=== PATIENT | female | born 1960 | race African-American/Black ===

== ENCOUNTER 2019-06-08 17:09 | Inpatient (IN) ==
[2019-06-08] MEDS ORDERED: 0.9 % Sodium Chloride 1,000 ML IVC ONE ×2 (17:40→19:09)
[2019-06-08] MEDS ORDERED: Piperacillin/Tazobactam 3.375 GM in 0.9 % Sodium Chloride Mini Bag 100 ML IVPB ONE (17:40)
[2019-06-08] MEDS ORDERED: Isovue-370 500 ML BOTTLE IVP ONE (17:41)
[2019-06-08] MEDS ORDERED: *HR* FentaNYL (PF) 100 MCG/2 ML VIAL IVP ONE (17:58)
[2019-06-08] MEDS ORDERED: Ondansetron 4 MG/2 ML VIAL IVP ONE (17:58)
[2019-06-08] MEDS ORDERED: Morphine Sulfate 2 MG/ML SYRINGE IVP ONE (17:58)
[2019-06-08] MEDS ORDERED: Vancomycin 0 MG in 0.9 % Sodium Chloride 250 ML IVPB SCH (18:00)
[2019-06-08 18:21] LABS: Basophils % 0.5 %; Eosinophils # 0.2 K/mcL (0.0-0.6); Eosinophils % 3.5 %; Hematocrit 37.6 % (35.3-44.9); Hemoglobin 12.7 g/dL (11.5-15.4); Immature Granulocytes % 0.8 % (0-4); Mean Corpuscular HGB Conc 33.8 g/dL (31.6-35.5); Mean Corpuscular Hemoglobin 28.5 pg (28.0-33.3); Mean Corpuscular Volume 84.5 fL (83.0-100.0); Mean Platelet Volume 10.4 fL (9.4-12.4); Monocytes # 0.6 K/mcL (0.0-1.3); Neutrophils # 3.3 K/mcL (1.6-8.9); Platelet Count 352 K/mcL (140-400); Red Blood Count 4.45 M/mcL (3.82-4.97); Segmented Neutrophils % 49.2 %; White Blood Count 6.6 K/mcL (4.3-11.1)
[2019-06-08 18:23] LABS: INR 1.1
[2019-06-08 18:26] LABS: Activated Partial Thrombo Time 31.1 Seconds (26.0-36.0)
[2019-06-08 18:31] LABS: Lymphocytes # 2.4 K/mcL (0.6-4.6)
[2019-06-08 18:40] LABS: BUN/Creatinine Ratio 15 (6-26); Blood Urea Nitrogen 14 mg/dL (6-20); Calcium 10.6 mg/dL (8.6-10.3); Carbon Dioxide 27 mEq/L (23-29); Chloride 105 mEq/L (98-107); Glucose 103 mg/dL (70-105); Osmolality,Calculated 295 (280-300); Potassium 3.9 mEq/L (3.5-5.1); Sodium 142 mEq/L (136-145); eGFR For African Americans > 60 (> 60); eGFR For Non-African Americans > 60 (> 60)
[2019-06-08 18:45] LABS: Platelet Estimate Normal (Normal); Reactive Lymphocytes Present (Not Present)
[2019-06-08 18:46] LABS: Large Platelets Present (Not Present)
[2019-06-08] MEDS ORDERED: *HR* HYDROmorphone (PF) 1 MG/ML SYRINGE IVP ONE (19:09)
[2019-06-08] MEDS ORDERED: Ketorolac 15 MG/ML VIAL IVP ONE (19:51)
[2019-06-09] MEDS ORDERED: Naloxone 0.4 MG/ML INJ IVP PRN ×3 (01:40→17:51)
[2019-06-09 04:18] LABS: Bilirubin,Urine Negative (Negative); Blood,Urine Negative (Negative); Clarity,Urine Clear (Clear); Color,Urine Yellow (Yellow); Glucose,Urine (UA) Normal (Normal); Ketones,Urine Negative (Negative); Leukocyte Esterase,Urine Negative (Negative); Nitrite,Urine Negative (Negative); Protein,Urine Negative (Neg-Trace); Specific Gravity,Urine 1.028 (1.010-1.025); Urobilinogen,Urine Normal (Normal)
[2019-06-09 04:30] LABS: Basophils % 0.7 %; Eosinophils # 0.2 K/mcL (0.0-0.6); Eosinophils % 3.7 %; Hematocrit 35.4 % (35.3-44.9); Hemoglobin 11.5 g/dL (11.5-15.4); Immature Granulocytes % 0.5 % (0-4); Lymphocytes # 2.2 K/mcL (0.6-4.6); Lymphocytes % 39.2 %; Mean Corpuscular HGB Conc 32.5 g/dL (31.6-35.5); Mean Corpuscular Volume 89.4 fL (83.0-100.0); Mean Platelet Volume 10.3 fL (9.4-12.4); Monocytes # 0.5 K/mcL (0.0-1.3); Monocytes % 9.1 %; Neutrophils # 2.7 K/mcL (1.6-8.9); Platelet Count 301 K/mcL (140-400); Red Blood Count 3.96 M/mcL (3.82-4.97); Red Cell Distribution Width 14.1 % (11.5-14.5); Segmented Neutrophils % 46.8 %; White Blood Count 5.7 K/mcL (4.3-11.1)
[2019-06-09 04:34] LABS: INR 1.1; Prothrombin Time 12.6 Seconds (9.4-12.1)
[2019-06-09 05:07] LABS: Alanine Aminotransferase 15 Units/L (7-52); Albumin 3.2 g/dL (3.5-5.7); Albumin/Globulin Ratio 1.1 (1.1-2.2); Alkaline Phosphatase 88 Units/L (34-104); Aspartate Amino Transferase 26 Units/L (13-39); BUN/Creatinine Ratio 15 (6-26); Bilirubin,Total 0.2 mg/dL (0.3-1.0); Blood Urea Nitrogen 12 mg/dL (6-20); Calcium 9.2 mg/dL (8.6-10.3); Carbon Dioxide 16 mEq/L (23-29); Chloride 112 mEq/L (98-107); Cholesterol 175 mg/dL (< 200); Globulin 2.9 g/dL (2.4-3.5); Glucose 138 mg/dL (70-105); HDL Cholesterol 35 mg/dL (40-59); LDL Cholesterol,Calculated 117 mg/dL (0-99); Magnesium 1.9 mg/dL (1.6-2.6); Osmolality,Calculated 286 (280-300); Phosphorous 2.6 mg/dL (2.7-4.5); Potassium 4.1 mEq/L (3.5-5.1); Sodium 137 mEq/L (136-145); Total Protein 6.1 g/dL (6.4-8.9); Triglycerides 117 mg/dL (< 150); eGFR For African Americans > 60 (> 60); eGFR For Non-African Americans > 60 (> 60)
[2019-06-09] MEDS ORDERED: Cefepime HCl 1,000 MG in Water for inj. (sterile) 10 ML IVP SCH (07:08)
[2019-06-09] MEDS ORDERED: Acetaminophen 325 MG TABLET PO PRN (09:22)
[2019-06-09] MEDS: Piperacillin/Tazobactam 3.375 GM in 0.9 % Sodium Chloride Mini Bag 100 ML IVPB SCH ×2 (09:27→16:39)
[2019-06-09] MEDS ORDERED: Fluticasone Propionate Nasal 50 MCG/SPRAY BOTTLE NS PRN ×2 (13:32→17:51)
[2019-06-09] MEDS ORDERED: *HR* FentaNYL (PF) 100 MCG/2 ML VIAL ONE (15:56)
[2019-06-09] MEDS ORDERED: *HR* Midazolam HCl 2 MG/2 ML VIAL ONE (15:56)
[2019-06-09] MEDS ORDERED: Dexamethasone 4 MG/ML VIAL ONE (15:56)
[2019-06-09] MEDS ORDERED: *HR* Propofol 200 MG/20 ML VIAL IVP ONE (15:56)
[2019-06-09] MEDS ORDERED: Lidocaine -MPF 2% 2 ML VIAL ONE (15:56)
[2019-06-09] MEDS ORDERED: Ondansetron 4 MG/2 ML VIAL ONE (15:56)
[2019-06-09] MEDS: *HR* HYDROmorphone (PF) 1 MG/ML SYRINGE IVP PRN ×2 (16:44→16:49)
[2019-06-09] MEDS ORDERED: *HR* HYDROmorphone (PF) 1 MG/ML SYRINGE IVP ONE (17:51)
[2019-06-09] MEDS ORDERED: *HR* HYDROmorphone (PF) 1 MG/ML SYRINGE IVP PRN (17:51)
[2019-06-09] MEDS ORDERED: *HR* Heparin 5,000 UNIT/ML VIAL SQ SCH (18:00)
[2019-06-09] MEDS: *HR* Heparin 5,000 UNIT/ML VIAL SQ SCH (19:34)
[2019-06-09] MEDS: Acetaminophen 325 MG TABLET PO PRN (20:47)
[2019-06-10] MEDS: Piperacillin/Tazobactam 3.375 GM in 0.9 % Sodium Chloride Mini Bag 100 ML IVPB SCH ×3 (00:39→18:18)
[2019-06-10 05:11] LABS: Hemoglobin 12.3 g/dL (11.5-15.4); Mean Corpuscular HGB Conc 34.2 g/dL (31.6-35.5); Mean Corpuscular Hemoglobin 29.3 pg (28.0-33.3); Mean Corpuscular Volume 85.7 fL (83.0-100.0); Mean Platelet Volume 9.9 fL (9.4-12.4); Platelet Count 332 K/mcL (140-400); Red Cell Distribution Width 13.7 % (11.5-14.5); White Blood Count 7.3 K/mcL (4.3-11.1)
[2019-06-10 05:29] LABS: BUN/Creatinine Ratio 13 (6-26); Blood Urea Nitrogen 12 mg/dL (6-20); Calcium 9.7 mg/dL (8.6-10.3); Carbon Dioxide 21 mEq/L (23-29); Chloride 106 mEq/L (98-107); Glucose 149 mg/dL (70-105); Osmolality,Calculated 297 (280-300); Potassium 4.4 mEq/L (3.5-5.1); Sodium 142 mEq/L (136-145); eGFR For African Americans > 60 (> 60); eGFR For Non-African Americans > 60 (> 60)
[2019-06-10] MEDS: *HR* Heparin 5,000 UNIT/ML VIAL SQ SCH ×2 (06:39→18:19)
[2019-06-10] MEDS ORDERED: amLODIPine 5 MG TABLET PO SCH (09:00)
[2019-06-10] MEDS: amLODIPine 5 MG TABLET PO SCH (09:52)
[2019-06-10] MEDS: Acetaminophen 325 MG TABLET PO PRN (21:49)
[2019-06-11] MEDS: Piperacillin/Tazobactam 3.375 GM in 0.9 % Sodium Chloride Mini Bag 100 ML IVPB SCH ×2 (01:23→08:44)
[2019-06-11] MEDS: *HR* Heparin 5,000 UNIT/ML VIAL SQ SCH (04:53)
[2019-06-11] MEDS: amLODIPine 5 MG TABLET PO SCH (08:45)
[2019-06-11 10:18] VITALS: BP 133/75
[2019-06-11] MEDS ORDERED: Aminoglycoside Consult 1 EACH MC ONE (18:24)
== END 2019-06-11 18:25 | disposition home health service (06) | DRG 571 ==
LOC: 3ANU 17:09 → EMEROOARM 17:09 → SUATTDRO 20:55 → 3ANU 21:55
PROVIDERS: ADMIT Internal Medicine; ATTEND Internal Medicine

== ENCOUNTER 2021-11-30 11:00 | Observation (INO) ==
[2021-11-30 12:00] LABS: VBG HCO3 24 mEq/L (21-27); VBG PCO2 48 mmHg (41-51); VBG PH 7.31 pH Units (7.32-7.42); VBG PO2 45 mmHg (25-50)
[2021-11-30 12:00] LABS: Basophils % 0.5 %; Hematocrit 48.4 % (35.3-44.9); Hemoglobin 15.3 g/dL (11.5-15.4); Immature Granulocytes % 0.4 % (0-4); Lymphocytes # 1.6 K/mcL (0.6-4.6); Lymphocytes % 18.6 %; Mean Corpuscular HGB Conc 31.6 g/dL (31.6-35.5); Mean Corpuscular Hemoglobin 28.3 pg (28.0-33.3); Mean Corpuscular Volume 89.5 fL (83.0-100.0); Mean Platelet Volume 12.4 fL (9.4-12.4); Monocytes # 0.4 K/mcL (0.0-1.3); Monocytes % 4.8 %; Neutrophils # 6.3 K/mcL (1.6-8.9); Platelet Count 295 K/mcL (140-400); Red Blood Count 5.41 M/mcL (3.82-4.97); Red Cell Distribution Width 14.9 % (11.5-14.5); Segmented Neutrophils % 75.7 %; White Blood Count 8.3 K/mcL (4.3-11.1)
[2021-11-30] MEDS: 0.9 % Sodium Chloride 1,000 ML IVC SCH ×2 (12:00→13:35)
[2021-11-30 12:27] LABS: Albumin 4.6 g/dL (3.5-5.7); Albumin/Globulin Ratio 1.2 (1.1-2.2); Calcium 12.4 mg/dL (8.6-10.3); Magnesium 2.8 mg/dL (1.6-2.6); Potassium 5.4 mEq/L (3.5-5.1); Total Protein 8.6 g/dL (6.4-8.9)
[2021-11-30 12:41] LABS: Bilirubin,Urine Negative (Negative); Blood,Urine Negative (Negative); Clarity,Urine Clear (Clear); Color,Urine Colorless (Yellow); Glucose,Urine (UA) >=1000 mg/dL (Normal); Ketones,Urine 20 mg/dL (Negative); Leukocyte Esterase,Urine Negative (Negative); Nitrite,Urine Negative (Negative); Protein,Urine Negative (Neg-Trace); RBC,Urine 0-3 per hpf (0-3); Specific Gravity,Urine 1.028 (1.010-1.025); Squamous Epithelial Cell,Urine Few per hpf (None-Few); Urobilinogen,Urine Normal (Normal); WBC,Urine 0-3 per hpf (0-3)
[2021-11-30] MEDS ORDERED: *HR* Metformin 500 MG TABLET PO ONE (12:58)
[2021-11-30] MEDS ORDERED: Naloxone 0.4 MG/ML INJ IVP PRN (13:06)
[2021-11-30] MEDS ORDERED: Insulin Regular, Human 100 UNIT/ML IV PRN ×2 (13:07→17:34)
[2021-11-30] MEDS ORDERED: D5% in 0.45% NACL 1,000 ML IVC PRN (13:07)
[2021-11-30] MEDS ORDERED: *HR* Dextrose 50 % in Water (Syg) 50 ML SYRINGE IVP PRN ×2 (13:07→17:34)
[2021-11-30] MEDS ORDERED: Insulin Regular, Human 100 UNIT/ML IV ONE (13:07)
[2021-11-30] MEDS ORDERED: INSULIN HUMAN REGULAR IV ONE ×2 (14:15→14:30)
[2021-11-30] MEDS ORDERED: SODIUM CHLORIDE 0.9% IV ONE ×2 (14:15→14:30)
[2021-11-30 14:37] LABS: Estimated Average Glucose 289 mg/dl; Hemoglobin A1C 11.7 %
[2021-11-30 15:23] LABS: Chol/HDL Ratio 5.6 (0-4.9)
[2021-11-30 16:15] LABS: Calcium 11.3 mg/dL (8.6-10.3)
[2021-11-30] MEDS: 0.45 % Sodium Chloride w/KCl 20 MEQ/1,000 ML MLS IVC SCH ×2 (17:22→20:37)
[2021-11-30 18:13] LABS: Calcium 11.1 mg/dL (8.6-10.3); Potassium 3.8 mEq/L (3.5-5.1)
[2021-11-30 19:52] LABS: BUN/Creatinine Ratio 23 (6-26); Blood Urea Nitrogen 24 mg/dL (8-23); Calcium 10.8 mg/dL (8.6-10.3); Carbon Dioxide 26 mEq/L (23-29); Chloride 117 mEq/L (98-107); Glucose 356 mg/dL (70-105); Osmolality,Calculated 328 (280-300); Potassium 4.3 mEq/L (3.5-5.1); Sodium 150 mEq/L (136-145); eGFR For African Americans > 60 (> 60); eGFR For Non-African Americans 53 (> 60)
[2021-11-30] MEDS: Ondansetron 4 MG/2 ML VIAL IVP PRN (21:22)
[2021-12-01] MEDS: D5% in 0.45% NACL w KCl 20 MEQ/1,000 ML MLS IVC SCH ×2 (00:30→10:51)
[2021-12-01 01:57] LABS: VBG HCO3 23 mEq/L (21-27); VBG PCO2 39 mmHg (41-51); VBG PH 7.39 pH Units (7.32-7.42); VBG PO2 63 mmHg (25-50)
[2021-12-01 02:17] LABS: BUN/Creatinine Ratio 20 (6-26); Blood Urea Nitrogen 19 mg/dL (8-23); Calcium 10.7 mg/dL (8.6-10.3); Carbon Dioxide 23 mEq/L (23-29); Chloride 121 mEq/L (98-107); Glucose 195 mg/dL (70-105); Magnesium 2.3 mg/dL (1.6-2.6); Osmolality,Calculated 318 (280-300); Phosphorous < 1.0 mg/dL (2.7-4.5); Sodium 150 mEq/L (136-145); eGFR For African Americans > 60 (> 60); eGFR For Non-African Americans > 60 (> 60)
[2021-12-01] MEDS ORDERED: Potassium Phosphate 44 MEQ in 0.9 % Sodium Chloride 250 ML IVPB ONE (02:45)
[2021-12-01] MEDS ORDERED: Dextrose Gel 15 GM/37.5 ML TUBE PO PRN ×2 (07:36)
[2021-12-01] MEDS ORDERED: D5% in Water 1,000 ML IVC PRN (07:36)
[2021-12-01] MEDS ORDERED: *HR* Dextrose 50 % in Water (Syg) 50 ML SYRINGE IVP PRN (07:36)
[2021-12-01] MEDS ORDERED: Insulin DETEMIR 100 UNIT/ML X5UNITS SUBQ ONE (07:36)
[2021-12-01] MEDS: Ondansetron 4 MG/2 ML VIAL IVP PRN (10:51)
[2021-12-01] MEDS: Acetaminophen 325 MG TABLET PO PRN ×3 (11:01→17:08)
[2021-12-01] MEDS: 0.45 % Sodium Chloride w/KCl 20 MEQ/1,000 ML MLS IVC SCH ×3 (11:29→11:31)
[2021-12-01] MEDS ORDERED: Insulin LISPRO 300 UNITS/3 ML VIAL SUBQ SCH ×2 (11:30→21:00)
[2021-12-01] MEDS: Insulin DETEMIR 100 UNIT/ML X5UNITS SUBQ SCH ×2 (17:07→20:12)
[2021-12-01] MEDS: Insulin LISPRO 300 UNITS/3 ML VIAL SUBQ SCH (17:07)
[2021-12-01] MEDS ORDERED: Insulin DETEMIR 100 UNIT/ML X5UNITS SUBQ SCH ×2 (21:00)
[2021-12-02 02:01] LABS: Basophils % 0.4 %; Eosinophils # 0.1 K/mcL (0.0-0.6); Eosinophils % 1.1 %; Hematocrit 41.1 % (35.3-44.9); Immature Granulocytes % 0.6 % (0-4); Lymphocytes # 2.8 K/mcL (0.6-4.6); Lymphocytes % 34.6 %; Mean Corpuscular HGB Conc 32.4 g/dL (31.6-35.5); Mean Corpuscular Hemoglobin 28.6 pg (28.0-33.3); Mean Corpuscular Volume 88.4 fL (83.0-100.0); Mean Platelet Volume 11.6 fL (9.4-12.4); Monocytes # 0.7 K/mcL (0.0-1.3); Monocytes % 8.6 %; Neutrophils # 4.4 K/mcL (1.6-8.9); Platelet Count 208 K/mcL (140-400); Red Blood Count 4.65 M/mcL (3.82-4.97); Red Cell Distribution Width 15.3 % (11.5-14.5); Segmented Neutrophils % 54.7 %
[2021-12-02 02:02] LABS: Hemoglobin 13.3 g/dL (11.5-15.4)
[2021-12-02 02:12] LABS: BUN/Creatinine Ratio 14 (6-26); Blood Urea Nitrogen 12 mg/dL (8-23); Calcium 11.4 mg/dL (8.6-10.3); Carbon Dioxide 24 mEq/L (23-29); Chloride 118 mEq/L (98-107); Glucose 306 mg/dL (70-105); Osmolality,Calculated 317 (280-300); Potassium 4.3 mEq/L (3.5-5.1); Sodium 148 mEq/L (136-145); eGFR For African Americans > 60 (> 60); eGFR For Non-African Americans > 60 (> 60)
[2021-12-02] MEDS: Acetaminophen 325 MG TABLET PO PRN ×2 (02:27→10:51)
[2021-12-02 07:36] VITALS: TEMP 96.9
[2021-12-02] MEDS: Insulin LISPRO 300 UNITS/3 ML VIAL SUBQ SCH ×2 (08:13→11:45)
[2021-12-02] MEDS: Insulin DETEMIR 100 UNIT/ML X5UNITS SUBQ SCH (08:14)
[2021-12-02] MEDS ORDERED: Insulin DETEMIR 100 UNIT/ML X5UNITS SUBQ ONE (09:07)
[2021-12-02 11:01] VITALS: BP 157/78; O2SAT 99
[2021-12-02] MEDS ORDERED: carvediloL 6.25 MG TABLET PO SCH (11:21)
[2021-12-02 11:26] LABS: Magnesium 2.2 mg/dL (1.6-2.6); Phosphorous 3.5 mg/dL (2.7-4.5)
[2021-12-02 12:55] VITALS: PULSE 87
[2021-12-02] MEDS ORDERED: Insulin DETEMIR 100 UNIT/ML X5UNITS SUBQ SCH (21:00)
== END 2021-12-02 14:23 | disposition home or self-care (01) ==
LOC: 2NNU 11:00 → EMEROOARM 11:00 → SUATTDRO 14:52 → 2NNU 15:52
PROVIDERS: ADMIT Hospitalist; ATTEND Internal Medicine